=== PATIENT | female | born 1945 | race American Indian/Alaskan Native ===

== ENCOUNTER 2017-08-27 13:32 | Day surgery (SDC) | payer OTHER ==
[~2017-08-27 13:32] MED LIST: ASCO500 PO; ASPI325 PO; CRUTCH3 USE; GABA300 PO; GABA600 PO; HYDACE10B PO; HYDACE5 PO; IBUP400 PO; IBUP800; LORA2 PO; MECL25 PO; META800 PO; MULVITMINF; Norco 5-325 Ta1 EACH PO; OXYACE5T PO; PSEU120ER PO; WARF5 PO
== END 2017-08-27 22:56 | disposition home or self-care (01) ==
LOC: RAD 13:32
PROVIDERS: Radiology Diagnostic Radiology
PROC: B01B1ZZ Fluoroscopy of Spinal Cord using Low Osmolar Contrast (ICD-10-PCS; principal; 2017-08-27 15:30)
DX: M54.5 Low back pain (principal)
CPT/HCPCS: 62304; 72132; Q9966

== ENCOUNTER → 2017-10-22 | Outpatient (CLI) | payer OTHER | END | disposition home or self-care (01) | LOC: LAB SHORT 09:19 → PLD 09:19 | DX: D22.5 Melanocytic nevi of trunk (principal) | CPT/HCPCS: 88305 ==

== ENCOUNTER → 2018-04-10 | Outpatient (CLI) | payer OTHER ==
[2018-04-10 13:38] LABS: Source, Urine Clean Catch
[2018-04-10 13:50] LABS: Bilirubin, Urine Neg (Neg); Blood, Urine Neg (Neg); Glucose Qualitative, Urine Neg (Neg); Ketones, Urine Neg (Neg); Leukocyte Esterase, Urine 2+ (Neg); Nitrite, Urine Neg (Neg); Protein, Urine Neg (Neg); Urobilinogen, Urine NORM (Normal)
[2018-04-10 14:08] LABS: Appearance, Urine Hazy (Clear); Color, Urine Yellow (P-Yellow)
[2018-04-10 14:09] LABS: Red Blood Cells, Urine 0-2 /hpf (0-2); White Blood Cells, Urine 0-2 /hpf (0-5)
[2018-04-10 14:10] LABS: Bacteria Mod /hpf; Squamous Epithelial Cells Mod /hpf (Few)
== END | disposition home or self-care (01) ==
LOC: LAB 13:27 → LAB FUT 04-09 18:30
PROVIDERS: Physician Assistant
DX: M54.5 Low back pain (principal)
CPT/HCPCS: 81001

== ENCOUNTER 2019-09-10 08:40 | Day surgery (SDC) | payer OTHER | END 2019-09-10 22:48 | disposition home or self-care (01) | LOC: RAD 08:40 → CT 09-22 10:00 | DX: M48.062 Spinal stenosis, lumbar region with neurogenic claudication (principal); M54.6 Pain in thoracic spine; M47.26 Other spondylosis with radiculopathy, lumbar region; M96.1 Postlaminectomy syndrome, not elsewhere classified; G89.29 Other chronic pain; E66.9 Obesity, unspecified; Z68.31 Body mass index [BMI] 31.0-31.9, adult; Z79.899 Other long term (current) drug therapy; Z96.651 Presence of right artificial knee joint; Z98.1 Arthrodesis status; Y83.8 Other surgical procedures as the cause of abnormal reaction of the patient, or of later complication, without mention of misadventure at the time of the procedure | CPT/HCPCS: 62304; 72132; Q9966 ==

== ENCOUNTER → 2019-12-14 | Outpatient (CLI) | payer OTHER | END | disposition home or self-care (01) | LOC: LAB SHORT 17:10 → LAB 17:10 | DX: H60.502 Unspecified acute noninfective otitis externa, left ear (principal) | CPT/HCPCS: 87070; 87205 ==